=== PATIENT | male | born 1960 | race Caucasian/White ===

== ENCOUNTER 2024-04-30 15:11 | Emergency (ER) | payer BC, SELFPAY ==
[2024-04-30 15:29] VITALS: BP 151/81
[2024-04-30 15:55] LABS: % Basophils 0.5 % (0-2); % Eosinophils 1.3 % (0-6); % Immature Granulocytes 0.4 % (0-0.5); % Lymphocytes 18.3 % (20.5-51.1); % Monocytes 11.4 % (1.7-9.3); % Neutrophils 68.1 % (42.2-75.2); Absolute Eosinophils 0.1 10^3/uL (0-0.7); Absolute Lymphocytes 1.5 10^3/uL (1.2-3.4); Absolute Neutrophils 5.7 10^3/uL (1.4-6.5); Hematocrit 44.1 % (39.0-52.0); Hemoglobin 15.3 g/dL (13.0-18.0); Mean Corp Hgb Conc. 34.7 g/dL (33.0-37.0); Mean Corpuscular Hgb 31.2 pg (27.0-31.0); Mean Corpuscular Volume 89.8 fL (80.0-94.0); Nucleated Red Blood Cells % 0 % (-); Platelet Count 210 10^3/uL (130-400); Red Blood Cell Count 4.91 10^6/uL (4.70-6.10); Red Cell Dist. Width 13.5 % (11.5-14.5); White Blood Cell Count 8.4 10^3/uL (4.8-10.8)
[2024-04-30 16:16] LABS: Troponin I < 0.012 ng/ml
[2024-04-30 16:20] LABS: ALT (SGPT) 46 U/L (0-50); AST (SGOT) 45 U/L (17-59); Albumin 4.6 g/dl (3.5-5.0); Alkaline Phosphatase 78 U/L (38-126); Blood Urea Nitrogen 28 mg/dl (9-20); Calcium 9.5 mg/dl (8.4-10.2); Carbon Dioxide 24 mmol/L (22-30); Chloride 106 mmol/L (98-107); Glucose 94 mg/dl (70-99); Potassium 4.4 mmol/L (3.5-5.1); Sodium 138 mmol/L (135-145); Total Bilirubin 1.6 mg/dl (0.2-1.3); Total Protein 7.2 g/dl (6.3-8.2); eGFR 56.13
[2024-04-30 16:31] VITALS: BMI 34.1
--- NOTE | 2024-04-30 17:06 | ED.GENMED ---
History of Present Illness
General
Chief Complaint: Chest Pain
Time Seen by Provider: 04/30/24 16:33
History of Present Illness
History of Present Illness:
64-year-old male with history of CAD,HTN, hyperlipidemia, and status post CABG x 3 presents to the Emergency Department for evaluation of L sided chest pain x 3 days. Pain is non pleuritic, does not feel comparable to past angina. No fevers, chills
or sweats. Notes a rash on the chest this AM.
Review of Systems
Review of Systems
Allergies reviewed?: Yes
All Other Systems: ROS reviewed and negative except as documented in HPI and ROS
Phy Exam
Physical Exam
Physical Exam:
GEN: Well appearing, NAD, WDWN
HEENT: Oral mucosa moist, no scleral icterus
Cardiac: Regular rateAnd rhythm no murmur
Lung: No respiratory distress, no tachypnea
MSK: No gross deformity or injuries
Skin: Good color, no pallor or jaundice. Vesicular rash to the left chest wall and thoracic back
Neuro: AO x3, moves all extremities freely
Psych: Calm, cooperative
Scores
Heart Score for Chest Pain Patients
STEMI patient?: No
History: Slightly or Non-Suspicious
ECG: Normal
Age: >45 - <65 years
Risk Factors: >/= 3 Risk Factors or History of CAD
Troponin: </= Normal Limit
Heart Score for Chest Pain Patients: 3
Heart Score Risk: 2.5% MACE over next 6 weeks
Course
Orders/Labs/Results
Orders:
Orders
04/30/24 15:27
Electrocardiogram (*1) Urgent
Reason for Study: Chest Pain
EKG- Treatment ONCE
04/30/24 15:43
Complete Blood Count/With Diff Urgent
Comprehensive Metabolic Panel Urgent
Troponin I Urgent
Abnormal Lab Results
04/30/24
15:43
MCH 31.2 H pg
(27.0-31.0)
Absolute Monos (auto) 1.0 H 10^3/uL
(0.1-0.6)
Lymphocytes % 18.3 L %
(20.5-51.1)
Monocytes % 11.4 H %
(1.7-9.3)
BUN 28 H mg/dl
(9-20)
Creatinine 1.4 H mg/dL
(0.7-1.3)
Total Bilirubin 1.6 H mg/dl
(0.2-1.3)
04/30/24 15:43
04/30/24 15:43
Vital Signs
Initial and Last Documented VS:
Initial Vital Signs
Temp Pulse Resp Pulse Ox
97.6 F 39 18 98
04/30/24 15:18 04/30/24 15:18 04/30/24 15:18 04/30/24 15:18
Last Documented Vital Signs
Temp Pulse Resp BP Pulse Ox
97.6 F 75 21 146/80 96
04/30/24 15:18 04/30/24 17:15 04/30/24 17:15 04/30/24 17:31 04/30/24 17:15
MDM/Problems Addressed
MDM/Problems Addressed:
Cardiac workup was reassuring, clinically he has a zoster rash on the left chest that is likely the cause of his symptoms. He is already on pregabalin for chronic neuropathy thus there is no benefit to gabapentin, will prescribe opiate pain
medications and antiviral
Comment
Comment:
Initial EKG independently interpreted by me shows a sinus rhythm with frequent PACs, no ST changes concerning for ischemia
*Critical Care Note
Total Time (30-74mins, 75-104mins- exclusive of procedures): Not Applicable
ED Attending Note
-
Portions of this chart may have been created with voice recognition software.� Occasional wrong word or��sound alike� substitutions may have occurred due to the inherent limitations of voice recognition software.
Discharge Plan
Departure
Patient Disposition: Home (Routine Discharge)
Date of Disposition: 04/30/24
Time of Disposition: 17:07
Patient with high blood pressure during this ER visit?: No
Discharge Problem:
Herpes zoster
Instructions: Shingles
Prescriptions:
New
valacyclovir 1 gram tablet
1,000 mg PO BID Qty: 20 0RF
oxycodone-acetaminophen [Percocet] 5-325 mg tablet
1 tab PO Q6HPRN PRN (Reason: pain) Qty: 15 0RF
Interventions
Interventions:
*Risk Screen - Suicide Last Done: 04/30/24 15:18
*General Assessment Last Done: 04/30/24 15:18
*Neglect/Abuse Screening Last Done: 04/30/24 15:18
ED- Fall Risk Assessment Last Done: 04/30/24 16:32
*Nursing Disposition Last Done: 04/30/24 17:32
ED- Cardiac Assessment Last Done: 04/30/24 16:32
Discharge Date and Time
Discharge Date/Time: 04/30/24 17:32
Print Language: YEMENI
[2024-04-30 17:31] VITALS: BP 146/80
== END 2024-04-30 17:32 | disposition home or self-care (01) ==
LOC: EMR 15:11
PROVIDERS: Emergency Medicine; EMERGENCY PHYSICIAN Emergency Medicine; FAMILY PHYSICIAN Family Medicine
DX: B02.9 Zoster without complications (principal); I25.10 Atherosclerotic heart disease of native coronary artery without angina pectoris; I10 Essential (primary) hypertension; E78.00 Pure hypercholesterolemia, unspecified; G62.9 Polyneuropathy, unspecified; Z95.1 Presence of aortocoronary bypass graft
CPT/HCPCS: 99283; 80053; 84484; 85025; 93005

== ENCOUNTER 2025-05-29 23:15 | Inpatient (IN) | payer BC, SELFPAY ==
[2025-05-29 18:49] VITALS: BP 134/82
[2025-05-29 19:05] LABS: Hematocrit 42.6 % (39.0-52.0); Hemoglobin 14.8 g/dL (13.0-18.0); Mean Corp Hgb Conc. 34.7 g/dL (33.0-37.0); Mean Corpuscular Volume 89.3 fL (80.0-94.0); Nucleated Red Blood Cells % 0 % (-); Platelet Count 192 10^3/uL (130-400); Red Cell Dist. Width 14.3 % (11.5-14.5)
[2025-05-29 19:28] LABS: ALT (SGPT) 35 U/L (0-50); AST (SGOT) 33 U/L (17-59); Albumin 4.3 g/dl (3.5-5.0); Alkaline Phosphatase 89 U/L (38-126); Blood Urea Nitrogen 26 mg/dl (9-20); Calcium 9.1 mg/dl (8.4-10.2); Carbon Dioxide 20 mmol/L (22-30); Chloride 108 mmol/L (98-107); Glucose 158 mg/dl (70-99); Potassium 4.2 mmol/L (3.5-5.1); Sodium 137 mmol/L (135-145); Total Protein 7.2 g/dl (6.3-8.2); eGFR > 60.00
--- NOTE | 2025-05-29 21:32 | ED.GENMED ---
History of Present Illness
General
Chief Complaint: Skin Problem
Source: patient
Time Seen by Provider: 05/29/25 20:57
History of Present Illness
History of Present Illness:
65-year-old male with past medical history of [id number] diabetes, hypertension, hyperlipidemia CAD status post VA presenting to the ER for evaluation of left foot edema and erythema with wounds along the great toe and lateral portion of
the foot. Patient states the great toe seems to be more problematic noting significant drainage, erythema and edema as well as larger ulceration. Patient follows with lane attendant, Dr. Alva. Currently not on any antibiotics. States has a noted
history for peripheral neuropathy secondary to his diabetes and that he does not have much sensation at baseline.
Past History
Past History
ED Past Medical History: CAD, HTN, Hypercholesterolemia and NIDDM
ED Past Surgical History: Cardiac and Orthopedic
Social History
Tobacco: Non-smoker
Alcohol: Occasional
Drug: None
Personal:
Living: with family
Review of Systems
Review of Systems
All Other Systems: ROS reviewed and negative except as documented in HPI and ROS
Phy Exam
Physical Exam
Physical Exam:
GENERAL: Alert , in no apparent distress
EYE: conjunctiva clear
Head: Normocephalic atraumatic
NECK: Supple,
ENT: mmm.
LUNGS: no acute respiratory distress
NEUROLOGICAL: Alert and oriented
SKIN: Warm and dry, left foot: Ulceration along the medial aspect of the great toe probes into the deep tissues, surrounding erythema, edema, minimal pain which patient reports is baseline due to his neuropathy. Erythema extends into the midfoot
and along the plantar surface. The great toe is weeping. There is a dry ulcer along the lateral aspect of the left foot at the distal fifth metatarsal
MUSCULOSKELETAL: well perfused.
PSYCH: Normal and appropriate interaction.
Scores
Heart Failure Risk
Heart Failure Risk Score: Not Applicable
Heart Score for Chest Pain Patients
STEMI patient?: Not applicable
Withdrawal Assessment of Alcohol
Withdrawal Assessment Completed?: Not applicable
Course
Orders/Labs/Results
Orders:
Orders
05/29/25 18:58
C-Reactive Protein Urgent
Comment: ADD ON
Complete Blood Count/With Diff Urgent
Comprehensive Metabolic Panel Urgent
Erythrocyte Sed Rate Urgent
Comment: ADD ON
05/29/25 21:14
Add On- LAB Urgent
Tests Added?: ESR/CRP
Piperacillin/Tazo 3.375 Gram [Zosyn] 3.375 gram in 50 ml IV NOW
05/29/25 21:15
CR Foot - Left Min 3 Views Urgent
Comment:
Reason For Exam: great toe erythema and wound, DM
05/29/25 21:53
Vancomycin [Vancocin] 2,000 mg 0.9% Sodium Chloride 500 ml [Nss] 500 ml IV NOW
05/29/25 22:07
Wound Culture [Wound/Abscess/Other Culture] Urgent
ELEN Source: Toe
Specimen Description:
Date Specimen was Collected: 05/29/25
Time Specimen was Collected: 22:00
Comment: left
05/29/25 22:26
MRSA Screen Routine
ELEN Source: Nose
Specimen Description:
05/29/25 22:56
Admit/Transfer Patient As Directed
Co-Sign Provider:
Level of Care: Inpatient admission
Assign to:: Medical/Surgical
Physician / Group: Keesha Anthony
Diagnosis: diabetic foot wound, cellulitis of left foot
Reason for Hospitalization: diabetic foot wound, cellulitis of left foot
Expected length of stay greater than two midnights?: Yes
ELOS- Estimated Length of Stay in days: 2
I certify the patient meets the requirements for IP care: Yes
05/29/25 22:57
PRN Pain Medication Management As Directed
May give lesser potent ordered pain med per pt: Yes
preference::
Protocol:: Medication orders for pain may be administered in a
manner that supports deferring to patient preference
when the pt is:
- Requesting an ordered lesser potent pain medication.
Least to most potent pain medications are defined
as: acetaminophen < NSAID < tramadol < opioids
(morphine, oxycodone, hydromorphone).
- Requesting a lesser dose of the same medication IF
ORDERED.
- Requesting a less intrusive route of administration
if both routes are prescribed by the provider (PO <
IV).
05/29/25 22:58
Code Status As Directed
Resuscitation Status: Full Code
05/30/25 00:27
Acetaminophen [Tylenol] 650 mg PO Q4HPRN PRN
Duloxetine Delayed Release [Cymbalta Delayed Release] 60 mg PO BID
Ticagrelor [Brilinta] 90 mg PO BID
VANCOMYCIN Pharmacy to Dose [VANCOCIN Pharmacy to Dose] 1 each Pharmacy To Prepare [Call Pharmacy To Prepare] 0 ml IV PER PROTOCOL
05/30/25 00:27
Consult Notification Routine
Specialty to Notify: Infectious Disease
INFECTIOUS DISEASE CONSULT Routine
Consulting Provider: Annabella Wilson
Was physician already notified: No
Reason for consult: diabetic foot wound, cellulitis
PODIATRY CONSULT Routine
Consulting Provider: Darius Burgess
Was physician already notified: Yes
Activity As Directed
Activity Level: As Tolerated
Vital Signs As Directed
Frequency: Per unit guidelines
Weight As Directed
Frequency: Once
Comment: on admission
DX Deep Vein Thrombosis Video Routine
05/30/25 06:00
Basic Metabolic Panel IN AM
Complete Blood Count/No Diff IN AM
Ampicillin/Sulbactam 3 G [Unasyn] 3 gm 0.9% Sodium Chloride 100 ml [Nss] 100 ml IV Q6H
05/30/25 08:00
Aspirin Chewable [Low Strength Aspirin] 81 mg PO DAILY
Dapagliflozin [Farxiga] 10 mg PO DAILY
Ezetimibe [Zetia] 10 mg PO DAILY
METFORMIN HCl [Glucophage] 500 mg PO BID
Metoprolol Xl [Toprol Xl] 100 mg PO DAILY
Metoprolol Xl [Toprol Xl] 50 mg PO DAILY
Pantoprazole [Protonix] 40 mg PO DAILY
Pregabalin [Lyrica] 200 mg PO TID
05/30/25 Dinner
2200 calorie (18 carb) Diabetic
05/30/25 18:00
Enoxaparin Sodium [Lovenox] 40 mg SC QPM
05/30/25 22:00
Atorvastatin [Lipitor] 80 mg PO HS
Abnormal Lab Results
05/29/25
18:58
Absolute Monos (auto) 1.3 H 10^3/uL
(0.1-0.6)
Lymphocytes % 18.8 L %
(20.5-51.1)
Monocytes % 14.5 H %
(1.7-9.3)
Chloride 108 H mmol/L
(98-107)
Carbon Dioxide 20 L mmol/L
(22-30)
BUN 26 H mg/dl
(9-20)
Glucose 158 H mg/dl
(70-99)
C-Reactive Protein 26.40 H mg/L
(0.0-10.00)
05/29/25 18:58
05/29/25 18:58
Vital Signs
Initial and Last Documented VS:
Initial Vital Signs
Temp Pulse Resp BP Pulse Ox
97.9 F 63 18 134/82 98
05/29/25 18:49 05/29/25 18:49 05/29/25 18:49 05/29/25 18:49 05/29/25 18:49
Last Documented Vital Signs
Temp Pulse Resp BP Pulse Ox
97.6 F 56 18 144/89 98
05/30/25 00:33 05/30/25 00:33 05/30/25 00:33 05/30/25 00:33 05/30/25 00:33
MDM/Problems Addressed
Differential Diagnosis Includes:
Diabetic foot ulcer
Osteomyelitis
Cellulitis
Necrotizing fasciitis
Abscess
MDM/Problems Addressed:
65-year-old male presenting to the ER for evaluation of what appears to be a significant diabetic foot infection. Ulcer probes quite deep, unclear if tracks all the way to bone. There is significant erythema, edema and drainage. Patient admits to
not checking his blood sugars very regularly but does report compliance with his oral medications. He is without fevers. Based off presentation I do have some clinical concern for osteomyelitis. X-ray ordered in addition to labs. Wound culture
ordered. Vancomycin and Zosyn ordered for antibiotic coverage. Planning to admit to hospitalist service with podiatry and consult
Chronic conditions affecting care: DM
Acute Exacerbation and/or Progression of Chronic Illness: DM
*Radiology
Radiology exam reviewed: preliminary read by ED provider (No definitive osteomyelitis)
*Pulse Oximetry
SaO2: 98
Oxygen Mode of Delivery: Room air
Patient hypoxic: no
*Critical Care Note
Total Time (30-74mins, 75-104mins- exclusive of procedures): Not Applicable
Patient Management
Discussion with other providers: Hospitalist and Gate Services Supervisor
Escalation/DeEscalation of care consider admission/obs:
I notified the hospitalist team who admits. Patient's lane attendant was also notified in case they need consultation.
ED Attending Note
-
Portions of this chart may have been created with voice recognition software.� Occasional wrong word or��sound alike� substitutions may have occurred due to the inherent limitations of voice recognition software.
Discharge Plan
Departure
Patient Disposition: Admit
Date of Disposition: 05/29/25
Time of Disposition: 21:32
Presentation/result/management discussed w/ accepting MD/DO: Hospitalist
Discharge Problem:
Diabetic foot ulcer, Cellulitis of foot, left
Interventions
Interventions:
*Risk Screen - Suicide Last Done: 05/29/25 18:49
*General Assessment Last Done: 05/29/25 18:49
*Neglect/Abuse Screening Last Done: 05/29/25 18:49
*ED COVID-19 Vaccine History Last Done: 05/30/25 00:34
*Nursing Disposition Last Done: 05/30/25 00:44
ED-Skin Assessment Last Done: 05/29/25 21:59
Discharge Date and Time
Discharge Date/Time: 05/30/25 00:44
[2025-05-29 21:49] VITALS: BMI 35.5
[2025-05-29 21:57] VITALS: BP 160/88
--- NOTE | 2025-05-29 21:59 | HPS.HSE ---
Family Physician
-
Family Physician: NOT KNOW UNKNOWN - PT DOES
Chief Complaint
-
left great toe wound and infection
History of Present Illness
Patient is a 65-year-old male with past medical history significant for hypertension, hyperlipidemia, diabetes, GERD and CAD who presented to [facility] ED for evaluation of left great toe wound and infection. Patient reports area started approximately 6
months ago and follows with spiral machine operator Dr. Burgess. He states that toe was almost healed and yesterday it started to swell and got worse overnight so he came to ED for evalaution after not being able to reach spiral machine operator. Denies fever, chills, cough,
shortness of breath, chest pain, nausea, vomiting, constipation, dairrhea or urniary symptoms.
Medical History
Past Medical History
Past Medical History: Reports Other
Additional Past Medical History:
hypertension
hyperlipidemia
diabetes
GERD
CAD
Past Surgical History: Reports Other
Additional Past Surgical History:
CABG x3 vessel
cardiac cath with stents x2
Social History
Tobacco: Non-smoker
Alcohol: Occasional
Drug: None
Personal:
Living: With Family
Employment: Employed
Family History
Family History: Not pertinent
Allergies / Home Medications
Allergies reflects when Allergies were last updated in [employer].
Home Medications with original date entered in [employer]
Allergy/Medication List:
Allergies
Allergy/AdvReac Type Severity Reaction Status Date / Time
No Known Allergies Allergy Unverified 04/30/24 15:25
Home Medications
aspirin 81 mg tablet 81 mg PO DAILY 05/29/25
atorvastatin 80 mg tablet 80 mg PO HS 05/29/25
duloxetine 60 mg capsule,delayed release 60 mg PO BID 05/29/25
empagliflozin 10 mg tablet (Jardiance) 10 mg PO DAILY 05/29/25
ezetimibe 10 mg tablet 10 mg PO DAILY 05/29/25
metformin 500 mg tablet 500 mg PO BID 05/29/25
metoprolol succinate 100 mg tablet,extended release 24 hr 100 mg PO DAILY 05/29/25
metoprolol succinate 50 mg tablet,extended release 24 hr 50 mg PO DAILY 05/29/25
omeprazole 40 mg capsule,delayed release 40 mg PO DAILY 05/29/25
pregabalin 200 mg capsule 200 mg PO TID 05/29/25
ticagrelor 90 mg tablet 90 mg PO BID 05/29/25
Review of Systems
-
History Source: Patient
Constitutional: Reports No Symptoms
EENT: Reports No Symptoms
Respiratory: Reports No Symptoms
Cardiac: Reports No Symptoms
Abdomen/GI: Reports No Symptoms
: Reports No Symptoms
Musculoskeletal: Reports Other (right great toe diabetic wound infection )
Skin: Reports No Symptoms
Neurological: Reports No Symptoms
Endocrine: Reports No Symptoms
Hematologic/Lymphatic: Reports No Symptoms
Psych: Reports No Symptoms
Physical Exam
Vital Signs
Vital Signs
Temp Pulse Resp BP Pulse Ox
97.9 F 52 17 160/88 100
05/29/25 18:49 05/29/25 21:57 05/29/25 21:57 05/29/25 21:57 05/29/25 21:57
Physical Exam
General: Well Developed, Well Nourished, No Apparent Distress, Comfortable and Conversant
HEENT: NormoCephalic, Moist mucous membranes and Atraumatic
Respiratory: Clear and Non Labored Respirations
Cardiac: S1/S2 and Regular Rhythm; No Murmur, Rub or Gallop
GI: Soft, Non Tender, Non Distended and Normal Bowel Sounds; No Organomegaly
Rectal: Deferred by Provider
Genito-urinary: Deferred by me
Musculoskeletal: No Clubbing and No Cyanosis
Skin: Warm, Rash and Other (right great toe diabetic wound infection )
Neuro: Awake, AO x 3 and Nonfocal/grossly intact
Hematologic/Lymphatic: No Lymphadenopathy
Psych: Calm and Intact Judgment/Insight
Laboratory Results
-
05/29/25 18:58
05/29/25 18:58
Laboratory Results
Total Bilirubin 1.2 mg/dl (0.2-1.3) 05/29/25 18:58
AST 33 U/L (17-59) 05/29/25 18:58
ALT 35 U/L (0-50) 05/29/25 18:58
Alkaline Phosphatase 89 U/L (38-126) 05/29/25 18:58
Data Reviewed
-
Diagnostic Radiology: Report Reviewed by me (Lt foot: o radiographic evidence for ostial myelitis. Thin metallic densities projecting dorsal to the first metatarsal bone, suggesting small opaque foreign bodies, uncertain etiology. Please correlate
clinically. Soft tissue defect involving the superficial plantar soft tissues at the level of t)
Lab Data: Labs Reviewed by me
Impression/Plan
-
IMPRESSION/PLAN:
#diabetic foot wound
Left foot x-ray: No radiographic evidence for ostial myelitis.
Thin metallic densities projecting dorsal to the first metatarsal bone, suggesting small opaque foreign bodies, uncertain etiology. Please correlate clinically.
Soft tissue defect involving the superficial plantar soft tissues at the level of the distal phalanx of the left great toe.
- Admit to med/surg
- MRSA swab
- IV Vanco and unasyn
- Consult ID
- Consult podiatry
- supportive care
#hypertension
- continue metoprolol
#hyperlipidemia
- continue atorvastatin
#diabetes
- continue metformin and Jardiance
#GERD
- continue omeprazole
#CAD
s/p CABG x3 and stents x2
- continue Brilinta
Code status: full code
DVT prophylaxis: lovenox sq
[2025-05-29 22:00] LABS: C-Reactive Protein 26.40 mg/L (0.0-10.00)
[2025-05-29] MEDS: ZOSYN 50 IV (22:04)
--- NOTE | 2025-05-29 22:39 | W.PN.UPDATE ---
Update Note
Progress Note Update
Patient seen in conjunction with WAGNER. I agree with findings on history and physical. I concur with assessment and plan.
Briefly, this is a 65-year-old with past medical history of CAD status post stenting with last 1 year, hypertension, hyperlipidemia, [id number] diabetes complicated by peripheral neuropathy who presents to the emergency department with
acute swelling of the left great toe that started 1 night ago.
Patient reports that he had blisters affecting the left great toe as well as the lateral side of the left foot for several weeks which has been healing. He also reports chronic ulcer of the left great toe for which she has been followed by podiatry
and had routine shavings. Reports history of recurrent tonsillitis but has not been on any antibiotics for the last 1 year. Stated that's had no significant issues up until last night when he started noticing swelling and redness. He denies
having any fevers or chills. He denies any nausea or vomiting. Blood glucose has remained well-controlled. He denies any prior history of foot infections. Denies any trauma.
The emergency department he was afebrile, blood pressure was stable at 160/88 with a pulse of 52 and was satting 97% on room air. ESR was 6, CRP was 26. CBC was fairly unremarkable, electrolytes BUN and creatinine were normal.
X-ray shows no foreign body. I do not see any focal fluid or gas collection. Cannot determine any periosteal changes pending official read.
Patient with diabetic foot infection most likely. He has a chronic ulcer which is does not appear to be related to any ischemic process. He has mild purulent cellulitis without systemic findings. No recent antibiotic or use of hospitalization.
Denies any prior foot infections. No history of gout.
-Admit to [facility]
- Blood cultures sent, he did have a wound swab in the ED
- With negative ESR will hold off on MRI at this time as no other findings consistent with osteo
-podiatry consult
- ID consult
- Given risk factor profile, continue vancomycin pending MRSA swab results
- Continue with IV Unasyn
CAD
- Continue aspirin and Brilinta and statin
- Continue metoprolol
DM 2
- Continue metformin and Jardiance for now
- Sliding scale insulin
DVT prophylaxis� lovenox
Code status - Full code
[2025-05-29] MEDS: VANCOCIN 540 MG IV (22:41)
[2025-05-29 23:00] VITALS: BP 165/102
[2025-05-30] VITALS (7 sets, daily range): BP systolic 139–166; BP diastolic 65–89; BMI 35.3
[2025-05-30 00:38] LABS: Glucose - Point of Care 123 mg/dl (70-99)
[2025-05-30] MEDS: CYMBALTA DELAYED RELEASE 60 MG PO ×3 (01:23→20:27)
[2025-05-30] MEDS: BRILINTA 90 MG PO ×3 (01:23→20:27)
[2025-05-30] MEDS: UNASYN IV ×3 (05:30→17:19)
[2025-05-30 07:24] LABS: Glucose - Point of Care 125 mg/dl (70-99)
[2025-05-30 07:40] LABS: Hematocrit 42.5 % (39.0-52.0); Hemoglobin 14.4 g/dL (13.0-18.0); Mean Corp Hgb Conc. 33.9 g/dL (33.0-37.0); Mean Corpuscular Volume 90.2 fL (80.0-94.0); Platelet Count 170 10^3/uL (130-400); Red Cell Dist. Width 14.3 % (11.5-14.5)
[2025-05-30 08:14] LABS: Blood Urea Nitrogen 21 mg/dl (9-20); Calcium 8.7 mg/dl (8.4-10.2); Carbon Dioxide 25 mmol/L (22-30); Chloride 109 mmol/L (98-107); Estimated Creatinine Clearance 88 ml/min; Glucose 112 mg/dl (70-99); Potassium 3.9 mmol/L (3.5-5.1); Sodium 140 mmol/L (135-145); eGFR > 60.00
--- NOTE | 2025-05-30 08:39 | PHA.VAN.IN ---
Assessment
- Assessment
Renal Function: Unknown baseline
Concomitant Antimicrobials: ampicillin/sulbactam
Plan
- Plan
Initial / Loading Dose: 2000mg - 05/29 22:41
Maintenance Regimen: dosing by level - will give 1500mg x1 at 1800 tonight
Monitoring: random 05/31 06
Based on population PK, patient likely would require 1500mg Q12H
However, patient unlikely to follow population PK with weight > 100kg and CrCl likely overestimated due to weight with elevated SCR
Level tomorrow may be on lower side but will obtain to ensure clearing appropriately before further dosing
Pharmacokinetics Vancomycin I
- -
Patient Age: 65
Patient Sex: Male
Vancomycin Day #: 1
Indication: Diabetic Foot
Requesting Provider: Yarely Dickerson
Pertinent Antimicrobial Allergies:
NKDA
Height / Weight:
Height 6 ft 3 in
Actual Weight 127.941 kg
Pertinent Past Medical History: BMI ~35, DM2
- Vital Signs / Lab Results
Temp Pulse Resp BP Pulse Ox
97.6 F 56 18 144/89 98
05/30/25 00:33 05/30/25 00:33 05/30/25 00:33 05/30/25 00:33 05/30/25 00:33
Lab Results - Hematology
05/29/25 05/30/25
18:58 06:21
WBC 8.9 8.1
Lab Results - Chemistry
05/29/25 05/30/25
18:58 06:21
BUN 26 H 21 H
Creatinine 1.1 1.2
Estimated Creat Clear 88
Albumin 4.3
[2025-05-30 08:54] LABS: Glycohemoglobin (HgbA1c) 7.0 % (4.0-5.6)
--- NOTE | 2025-05-30 09:24 | CON.ID ---
Addendum entered and electronically signed by Annabella Wilson MD 05/30/25 15:23:
I personally performed a history and physical exam of the patient and discussed management with the resident. I reviewed the resident's note and agree with the documented findings and plan of care HPI/CC.
Exam: left great toe edematous, + erythema over met head, plantar wound tunnels and probes to bone.
left dorsalis pedis weak pulse
Assessment:
# Left hallux osteo (wound probes to bone) and cellulitis
# Diabetic left hallux ulcer
# hx Left ?extensor hallux longus tendon repair - which probably correlates with metallic foreign body seen on XRAY
# DM with neuropathy
- Ordered LE arterial duplex with CAS
- Will need MRI
-Recommend podiatry surgery consult. will likely need toe amp.
-Continue Vanco/Unasyn for now.
Follow Vanco level closely adn adjust prn
- Recommend tight glucose control.
Case discussed with Dr. Chacon
Original Note:
Consultation
-
Date/Time Consultation Requested: 05/30/2025 00:27
Date/Time Consultation Performed: 05/30/2025 09:00
Requesting Provider: WAGNER Self
Performing Provider: Dejan Mane MD ; Annabella Wilson MD
Reason for Consultation: Left foot cellulitis
Chief Complaint / Past History
Chief Complaint
Left great toe wound with concerns of cellulitis
History of Present Illness
This is a 65-year-old male with known past medical history of CAD, hypertension, hyperlipidemia, diabetes, GERD presented in the emergency department on 05/29/2025 with complaints of left great toe wound and possible infection. Per the patient he
had a blister under his left foot great toe almost 6 months ago which popped and he had an open wound after that. He was following with the manager product management Dr. Burgess he was not on any antibiotics and it was healing as expected however few days ago he
noticed that he started to develop swelling and pain; denies any new trauma and after he could not reach out to the manager product management, decided to visit the emergency department. Denies any other systemic symptoms including fevers or chills, chest pain,
trouble breathing, GI symptoms or any urinary symptoms.
In the emergency department he was afebrile with blood pressure was slightly elevated other vitals remained stable. ESR was 6, CRP was 26(elevated). CBC with normal white count CMP unremarkable.
Past History
Past Medical History: CAD, GERD, HTN, Hypercholesterolemia and NIDDM
Past Surgical History: Cardiac (CABG x3 vessel, cardiac cath with stents x2)
Allergy History:
No Known Allergies Allergy (Unverified 04/30/24 15:25)
Medications Reviewed: Yes
Current Antibiotics:
Unasyn and vancomycin
Social History
Tobacco: Non-Smoker
Alcohol: Occasional
Drug: None
Personal:
Living: With Family
Family History
Family History: Not Pertinent
Review of Systems
Review of Systems
General: Negative Fever
Cardiovascular: Negative Chest Pain
Respiratory: Negative Cough
Genital / Urological: Negative Dysuria
Musculoskeletal: Joint Pain, Joint Swelling and Other (Left swelling and pain.)
Vital Signs
Temp Pulse Resp BP Pulse Ox
97.4 F 48 18 139/69 100
05/30/25 07:20 05/30/25 07:20 05/30/25 07:20 05/30/25 07:20 05/30/25 07:20
Physical Exam
Physical Exam
Constitutional: No Acute Distress and Well Developed
Cardiovascular: Regular Rate and S1/S2
Pulmonary: Clear and Non Labored
Gastrointestinal: Soft and Non Tender
Musculoskeletal: Joint Swelling (Left great toe)
Skin: Warm
Wound: Other (Open wound under the left great toe)
Neurological: Awake, Alert and Oriented
Psychological: Calm
Lab / Diagnostic Study Results
05/30/25 06:21
05/30/25 06:21
Abs Immat Gran (auto) 0.0 10^3/uL (0-0.05) 05/29/25 18:58
Absolute Neuts (auto) 5.7 10^3/uL (1.4-6.5) 05/29/25 18:58
Absolute Lymphs (auto) 1.7 10^3/uL (1.2-3.4) 05/29/25 18:58
Absolute Monos (auto) 1.3 10^3/uL (0.1-0.6) H 05/29/25 18:58
Absolute Basos (auto) 0.0 10^3/uL (0-0.2) 05/29/25 18:58
Immature Gran % 0.5 % (0-0.5) 05/29/25 18:58
Neutrophils % 63.9 % (42.2-75.2) 05/29/25 18:58
Lymphocytes % 18.8 % (20.5-51.1) L 05/29/25 18:58
Monocytes % 14.5 % (1.7-9.3) H 05/29/25 18:58
Eosinophils % 1.8 % (0-6) 05/29/25 18:58
Basophils % 0.5 % (0-2) 05/29/25 18:58
ESR 6 mm/hour (0-20) 05/29/25 18:58
C-Reactive Protein 26.40 mg/L (0.0-10.00) H 05/29/25 18:58
Microbiology Results
Micro:
05/30/25 00:55 MRSA Screen - Pending
Nose
05/29/25 22:07 Wound Culture - Pending
Toe Gram Stain - Pending
XRAY Foot - Left 05/29/2025:
No radiographic evidence for ostial myelitis.
Thin metallic densities projecting dorsal to the first metatarsal bone, suggesting small opaque foreign bodies, uncertain etiology. Please correlate clinically.
Soft tissue defect involving the superficial plantar soft tissues at the level of the distal phalanx of the left great toe.
Assessment / Plan
# Diabetic left foot infection
# DM
- Trend temperature and WBC
- Podiatry evaluation pending
- Continue IV Unasyn and vancomycin for now while cultures are pending; suspect osteo given the depth of the open wound
- defer mri to podiatry
[2025-05-30] MEDS: ZETIA 10 MG PO (09:27)
[2025-05-30] MEDS: GLUCOPHAGE 500 MG PO ×2 (09:27→20:27)
[2025-05-30] MEDS: PROTONIX 40 MG PO (09:27)
[2025-05-30] MEDS: LOW STRENGTH ASPIRIN 81 MG PO (09:29)
[2025-05-30] MEDS: FARXIGA 10 MG PO (09:30)
[2025-05-30] MEDS: LYRICA 200 MG PO ×3 (09:32→20:30)
--- NOTE | 2025-05-30 09:45 | PTCARENOTE ---
noted patients heart rate 48 (taken by tech), patients heart rate rechecked and found to be 48-56 beats per minute . patient is due for toprol 150 mg this morning. discussed with patient who said torpol was just recently increased from 100mg daily
to 150 mg daily due to increase in PVC's/ Dr Chacon made aware and toprol dose changed and patient placed on operating room technician. monitor showing SB 50's with frequent PVC's. patient denied any symptoms related to decreased heart rate. plan of care
on going.
--- NOTE | 2025-05-30 11:29 | CM ---
analysis manager reviewed patient's chart and met with patient and patient states he lives with his spouse in a 2 story home, patient is independent with adl's and ambulation, no dme, patient drives, home when stable.
PCP: Dr Riley/new PCP Dr. Dailey
Pharmacy: [facility].
[2025-05-30 11:50] LABS: Glucose - Point of Care 136 mg/dl (70-99)
--- NOTE | 2025-05-30 13:56 | W.PN.HOSP.TC ---
Today's Communication/Plan
-
Monitor vital signs see plan
Continue with antibiotics
Podiatry consulted
defer MRI to podiatry
monitor on tele
Assessment / Plan
Assessment / Plan
General: Well Developed, Well Nourished, No Apparent Distress, Comfortable and Conversant
HEENT: NormoCephalic, Moist mucous membranes and Atraumatic
Respiratory: Clear and Non Labored Respirations
Cardiac: S1/S2 and Regular Rhythm; No Murmur, Rub or Gallop
GI: Soft, Non Tender, Non Distended and Normal Bowel Sounds
Skin: Warm, Rash and Other (right great toe diabetic wound infection )
Neuro: Awake, AO x 3 and Nonfocal/grossly intact
Psych: Calm and Intact Judgment/Insight
diabetic foot wound
Left foot x-ray: No radiographic evidence for ostial myelitis.
Thin metallic densities projecting dorsal to the first metatarsal bone, suggesting small opaque foreign bodies, uncertain etiology. Please correlate clinically.
Soft tissue defect involving the superficial plantar soft tissues at the level of the distal phalanx of the left great toe.
- MRSA swab
- cw IV Vanco and unasyn
- Consult ID
Podiatry consulted, consider MRI defer to podiatry
- supportive care
hypertension
- continue metoprolol
hyperlipidemia
- continue atorvastatin
diabetes
- continue metformin and Jardiance
a1c 7
GERD
- continue omeprazole
CAD
s/p CABG x3 and stents x2
- continue Brilinta
On metoprolol, decreased to 75 mg due to bradycardia. Monitor on telemetry
Code status: full code
DVT prophylaxis: lovenox sq
Anticipated Discharge: > 48 hours
Subjective/Interval History
-
Date of Service: May 30, 2025
Denies pain
Objective Data
-
Labs:
Laboratory Results
05/30/25
06:21
WBC 8.1
Hgb 14.4
Hct 42.5
Plt Count 170
Sodium 140
Potassium 3.9
Chloride 109 H
Carbon Dioxide 25
BUN 21 H
Creatinine 1.2
Glucose 112 H
Calcium 8.7
Vital Signs:
Vital Signs
Temp Pulse Resp BP Pulse Ox
97.8 F 51 18 158/80 97
05/30/25 11:11 05/30/25 11:11 05/30/25 11:11 05/30/25 11:11 05/30/25 11:11
I&O
05/29/25 05/30/25 05/31/25
06:59 06:59 06:59
Intake Total 960 / 960
Balance 960 / 960
--- NOTE | 2025-05-30 16:18 | CON.SURG ---
Surgical Consultation
-
Chief Complaint / Past History
Chief Complaint
Left great toe wound with concerns of cellulitis
History of Present Illness
This is a 65-year-old male with known past medical history of CAD, hypertension, hyperlipidemia, diabetes, GERD presented in the emergency department on 05/29/2025 with complaints of left great toe wound and possible infection. Per the patient he
had a blister under his left foot great toe almost 6 months ago which popped and he had an open wound after that. He was following with the wig dresser Dr. Burgess he was not on any antibiotics and it was healing as expected however few days ago he
noticed that he started to develop swelling and pain; denies any new trauma and after he could not reach out to the wig dresser, decided to visit the emergency department. Denies any other systemic symptoms including fevers or chills, chest pain,
trouble breathing, GI symptoms or any urinary symptoms.
In the emergency department he was afebrile with blood pressure was slightly elevated other vitals remained stable. ESR was 6, CRP was 26(elevated). CBC with normal white count CMP unremarkable.
Past History
Past Medical History: CAD, GERD, HTN, Hypercholesterolemia and NIDDM
Past Surgical History: Cardiac (CABG x3 vessel, cardiac cath with stents x2)
Allergy History:
No Known Allergies Allergy (Unverified 04/30/24 15:25)
Medications Reviewed: Yes
Current Antibiotics:
Unasyn and vancomycin
Social History
Tobacco: Non-Smoker
Alcohol: Occasional
Drug: None
Personal:
Living: With Family
Family History
Family History: Not Pertinent
Review of Systems
Review of Systems
General: Negative Fever
Cardiovascular: Negative Chest Pain
Respiratory: Negative Cough
Genital / Urological: Negative Dysuria
Musculoskeletal: Joint Pain, Joint Swelling and Other (Left swelling and pain.)
Vital Signs
Temp Pulse Resp BP Pulse Ox
97.4 F 48 18 139/69 100
05/30/25 07:20 05/30/25 07:20 05/30/25 07:20 05/30/25 07:20 05/30/25 07:20
Physical Exam
Physical Exam
Constitutional: No Acute Distress and Well Developed
Cardiovascular: Regular Rate and S1/S2
Pulmonary: Clear and Non Labored
Gastrointestinal: Soft and Non Tender
Musculoskeletal: Joint Swelling (Left great toe)
Skin: Warm
Wound: Other (Open wound under the left great toe)
Neurological: Awake, Alert and Oriented
Psychological: Calm
LLE Exam:
-DP/PT pulses 2/4, capillary refill < 3 seconds
-Medial hallux wound probes deep to subcutaneous tissue and periosteum
-Scant seropurulent drainage with erythema and edema
-No fluctuance or crepitus
Lab / Diagnostic Study Results
05/30/25 06:21
05/30/25 06:21
Abs Immat Gran (auto) 0.0 10^3/uL (0-0.05) 05/29/25 18:58
Absolute Neuts (auto) 5.7 10^3/uL (1.4-6.5) 05/29/25 18:58
Absolute Lymphs (auto) 1.7 10^3/uL (1.2-3.4) 05/29/25 18:58
Absolute Monos (auto) 1.3 10^3/uL (0.1-0.6) H 05/29/25 18:58
Absolute Basos (auto) 0.0 10^3/uL (0-0.2) 05/29/25 18:58
Immature Gran % 0.5 % (0-0.5) 05/29/25 18:58
Neutrophils % 63.9 % (42.2-75.2) 05/29/25 18:58
Lymphocytes % 18.8 % (20.5-51.1) L 05/29/25 18:58
Monocytes % 14.5 % (1.7-9.3) H 05/29/25 18:58
Eosinophils % 1.8 % (0-6) 05/29/25 18:58
Basophils % 0.5 % (0-2) 05/29/25 18:58
ESR 6 mm/hour (0-20) 05/29/25 18:58
C-Reactive Protein 26.40 mg/L (0.0-10.00) H 05/29/25 18:58
Microbiology Results
Micro:
05/30/25 00:55 MRSA Screen - Pending
Nose
05/29/25 22:07 Wound Culture - Pending
Toe Gram Stain - Pending
XRAY Foot - Left 05/29/2025:
No radiographic evidence for ostial myelitis.
Thin metallic densities projecting dorsal to the first metatarsal bone, suggesting small opaque foreign bodies, uncertain etiology. Please correlate clinically.
Soft tissue defect involving the superficial plantar soft tissues at the level of the distal phalanx of the left great toe.
Assessment / Plan
65 yo M with DM presents with left hallux infection
-Radiographs show no evidence of osteomyelitis
-Wound probes deep with concerns for infection
-Recommend MRI of left foot
-CAS/PVR of LLE
-HbA1c 7.0, ESR 6 CRP 26
-Continue antibiotics per ID recs
-Discussed rigid blood sugar control and risk of amputation, limb loss
-Will continue to follow
[2025-05-30 16:40] LABS: Glucose - Point of Care 173 mg/dl (70-99)
[2025-05-30] MEDS: VANCOCIN 530 MG IV (18:31)
[2025-05-30] MEDS: LOVENOX 40 MG SC (18:32)
[2025-05-30] MEDS: LIPITOR 80 MG PO (20:28)
[2025-05-30 21:37] LABS: Glucose - Point of Care 167 mg/dl (70-99)
[2025-05-31] MEDS: UNASYN IV ×5 (01:08→23:05)
[2025-05-31 03:49] VITALS: BP 141/75
[2025-05-31 07:46] LABS: Hematocrit 43.2 % (39.0-52.0); Hemoglobin 14.5 g/dL (13.0-18.0); Mean Corp Hgb Conc. 33.6 g/dL (33.0-37.0); Mean Corpuscular Volume 90.4 fL (80.0-94.0); Nucleated Red Blood Cells % 0 % (-); Platelet Count 182 10^3/uL (130-400); Red Cell Dist. Width 14.3 % (11.5-14.5)
[2025-05-31 08:16] LABS: Glucose - Point of Care 129 mg/dl (70-99)
[2025-05-31 08:26] LABS: Blood Urea Nitrogen 23 mg/dl (9-20); Calcium 9.3 mg/dl (8.4-10.2); Carbon Dioxide 22 mmol/L (22-30); Chloride 112 mmol/L (98-107); Estimated Creatinine Clearance 88 ml/min; Glucose 135 mg/dl (70-99); Potassium 4.3 mmol/L (3.5-5.1); Sodium 142 mmol/L (135-145); eGFR > 60.00
[2025-05-31 08:43] VITALS: BP 150/78
[2025-05-31] MEDS: FARXIGA 10 MG PO (09:35)
[2025-05-31] MEDS: ZETIA 10 MG PO (09:35)
[2025-05-31] MEDS: PROTONIX 40 MG PO (09:35)
[2025-05-31] MEDS: CYMBALTA DELAYED RELEASE 60 MG PO ×2 (09:35→19:40)
[2025-05-31] MEDS: BRILINTA 90 MG PO ×2 (09:35→19:40)
[2025-05-31] MEDS: LOW STRENGTH ASPIRIN 81 MG PO (09:36)
[2025-05-31] MEDS: TOPROL XL 75 MG PO (09:36)
[2025-05-31] MEDS: GLUCOPHAGE PO (09:37)
[2025-05-31] MEDS: LYRICA 200 MG PO ×3 (09:46→21:00)
[2025-05-31 09:48] LABS: Magnesium 2.1 mg/dl (1.6-2.3)
--- NOTE | 2025-05-31 09:48 | PHA.VAN.FU ---
Vancomycin Assessment / Plan
- Assessment
Renal Function: Stable
WBC's are: WNL
In the past 24 hrs, patient has been: Afebrile
Concomitant Antimicrobials: AMPICILLIN/SULBACTAM
- Assessment - Therapeutic Drug Monitoring
Random Level: 10.1 DRAWN ~12H AFTER PREVIOUS 1500MG DOSE
- Dosing Plan
Adjust Regimen to: VANCO 1500MG X1 NOW, THEN VANCO 1250MG Q12H
- Monitoring Plan
No level(s) ordered at this time: CONSIDER LEVEL PRIOR TO 4TH MAINTENANCE DOSE
- Follow Up
Pharmacy will continue to follow.
Vancomycin Follow UP
- -
Patient Age: 65
Patient Sex: Male
Vancomycin Day #: 2
Indication: Diabetic Foot
Requesting Provider: Yarely Dickerson
Pertinent Antimicrobial Allergies:
NKDA
Height / Weight:
Height 6 ft 3 in
Actual Weight 127.941 kg
Pertinent Past Medical History: BMI ~35, DM2
- Vital Signs / Lab Results
Temp Pulse Resp BP Pulse Ox
98.1 F 53 18 150/78 98
05/31/25 08:43 05/31/25 08:43 05/31/25 08:43 05/31/25 08:43 05/31/25 08:43
Lab Results - Hematology
05/29/25 05/30/25 05/31/25
18:58 06:21 06:00
WBC 8.9 8.1 6.2
Lab Results - Chemistry
05/29/25 05/30/25 05/31/25
18:58 06:21 06:00
BUN 26 H 21 H 23 H
Creatinine 1.1 1.2 1.2
Estimated Creat Clear 88 88
Albumin 4.3
Microbiology Results
05/30/25 00:55 MRSA Screen - Final
Nose No Methicillin Resistant Staphylococcus aureus isolated.
05/29/25 22:07 Gram Stain - Preliminary
Toe
Therapeutic Drug Monitoring
Random Vancomycin 10.1 ug/ml 05/31/25 06:00
[2025-05-31] MEDS: VANCOCIN 530 MG IV (10:29)
[2025-05-31 11:51] LABS: Glucose - Point of Care 168 mg/dl (70-99)
--- NOTE | 2025-05-31 11:58 | W.PN.HOSP.TC ---
Today's Communication/Plan
-
Monitor vital signs see plan
Ultrasound with CAS pending
MRI left foot
Continue with antibiotic
ID and podiatry
Assessment / Plan
Assessment / Plan
General: Well Developed, Well Nourished, No Apparent Distress, Comfortable and Conversant
HEENT: NormoCephalic, Moist mucous membranes and Atraumatic
Respiratory: Clear and Non Labored Respirations
Cardiac: S1/S2 and Regular Rhythm; No Murmur, Rub or Gallop
GI: Soft, Non Tender, Non Distended and Normal Bowel Sounds
Skin: Warm, Rash and Other (left great toe diabetic wound infection )
Neuro: Awake, AO x 3 and Nonfocal/grossly intact
Psych: Calm and Intact Judgment/Insight
diabetic foot wound
Left foot x-ray: No radiographic evidence for ostial myelitis.
Thin metallic densities projecting dorsal to the first metatarsal bone, suggesting small opaque foreign bodies, uncertain etiology. Please correlate clinically.
Soft tissue defect involving the superficial plantar soft tissues at the level of the distal phalanx of the left great toe.
- MRSA swab
- cw IV Vanco and unasyn
ID following
Ultrasound lower extremity with CAS pending, MRI pending
Podiatry following
hypertension
- continue metoprolol
hyperlipidemia
- continue atorvastatin
diabetes
- continue metformin and Jardiance
a1c 7
GERD
- continue omeprazole
CAD
s/p CABG x3 and stents x2
- continue Brilinta
On metoprolol, decreased to 100 mg due to bradycardia. Monitor on telemetry. has PVC's
Code status: full code
DVT prophylaxis: lovenox sq
Anticipated Discharge: > 48 hours
Subjective/Interval History
-
Date of Service: May 31, 2025
denies nausea
Objective Data
-
Labs:
Laboratory Results
05/31/25
06:00
WBC 6.2
Hgb 14.5
Hct 43.2
Plt Count 182
Sodium 142
Potassium 4.3
Chloride 112 H
Carbon Dioxide 22
BUN 23 H
Creatinine 1.2
Glucose 135 H
Calcium 9.3
Vital Signs:
Vital Signs
Temp Pulse Resp BP Pulse Ox
98.1 F 53 18 150/78 98
05/31/25 08:43 05/31/25 08:43 05/31/25 08:43 05/31/25 08:43 05/31/25 08:43
I&O
05/30/25 05/31/25 06/01/25
06:59 06:59 06:59
Intake Total 960 / 960 960 / 960
Balance 960 / 960 960 / 960
[2025-05-31 11:59] VITALS: BP 153/89
[2025-05-31] MEDS: TOPROL XL 25 MG PO (12:04)
[2025-05-31] MEDS: NOVOLOG FLEXPEN-LOW RESISTANCE 1 UNITS SC (14:20)
[2025-05-31 16:11] VITALS: BP 151/72
[2025-05-31 16:55] LABS: Glucose - Point of Care 132 mg/dl (70-99)
[2025-05-31] MEDS: NOVOLOG FLEXPEN-LOW RESISTANCE SC (17:10)
[2025-05-31] MEDS: LOVENOX 40 MG SC (17:14)
[2025-05-31] MEDS: VANCOCIN 275 MG IV (17:52)
[2025-05-31 19:30] VITALS: BP 158/80
[2025-05-31] MEDS: LIPITOR 80 MG PO (19:40)
[2025-05-31 21:08] LABS: Glucose - Point of Care 149 mg/dl (70-99)
[2025-05-31 23:46] VITALS: BP 150/84
[2025-06-01 03:32] VITALS: BP 150/79
[2025-06-01] MEDS: UNASYN IV ×2 (05:46→12:50)
[2025-06-01] MEDS: VANCOCIN 275 MG IV (06:28)
[2025-06-01 07:20] LABS: Hematocrit 42.9 % (39.0-52.0); Hemoglobin 14.4 g/dL (13.0-18.0); Mean Corp Hgb Conc. 33.6 g/dL (33.0-37.0); Mean Corpuscular Volume 89.0 fL (80.0-94.0); Nucleated Red Blood Cells % 0 % (-); Platelet Count 181 10^3/uL (130-400); Red Cell Dist. Width 14.2 % (11.5-14.5)
[2025-06-01 07:45] LABS: Blood Urea Nitrogen 22 mg/dl (9-20); Calcium 8.7 mg/dl (8.4-10.2); Carbon Dioxide 21 mmol/L (22-30); Chloride 112 mmol/L (98-107); Estimated Creatinine Clearance 96 ml/min; Glucose 124 mg/dl (70-99); Potassium 4.1 mmol/L (3.5-5.1); Sodium 140 mmol/L (135-145); eGFR > 60.00
--- NOTE | 2025-06-01 08:13 | PHA.VAN.FU ---
Vancomycin Assessment / Plan
- Assessment
Renal Function: Stable
WBC's are: WNL
In the past 24 hrs, patient has been: Afebrile
Concomitant Antimicrobials: AMIPICILLIN/SULBACTAM
- Assessment - Therapeutic Drug Monitoring
Random Level: 13.1 DRAWN ~12H AFTER PREVIOUS DOSE 1250MG
- Dosing Plan
Continue: VANCO 1250MG Q12H
- Monitoring Plan
No level(s) ordered at this time: CONSIDER LEVEL IN NEXT FEW DAYS
- Follow Up
Pharmacy will continue to follow.
Vancomycin Follow UP
- -
Patient Age: 65
Patient Sex: Male
Vancomycin Day #: 3
Indication: Diabetic Foot
Requesting Provider: Yarely Dickerson
Pertinent Antimicrobial Allergies:
NKDA
Height / Weight:
Height 6 ft 3 in
Actual Weight 127.941 kg
Pertinent Past Medical History: BMI ~35, DM2
- Vital Signs / Lab Results
Temp Pulse Resp BP Pulse Ox
97.8 F 53 20 150/79 98
06/01/25 03:32 06/01/25 03:32 06/01/25 03:32 06/01/25 03:32 06/01/25 03:32
Lab Results - Hematology
05/29/25 05/30/25 05/31/25
18:58 06:21 06:00
WBC 8.9 8.1 6.2
06/01/25
06:53
WBC 7.2
Lab Results - Chemistry
05/29/25 05/30/25 05/31/25
18:58 06:21 06:00
BUN 26 H 21 H 23 H
Creatinine 1.1 1.2 1.2
Estimated Creat Clear 88 88
Albumin 4.3
06/01/25
06:53
BUN 22 H
Creatinine 1.1
Estimated Creat Clear 96
Albumin
Microbiology Results
05/29/25 22:07 Wound Culture - Preliminary
Toe Staphylococcus aureus
Gram negative bacilli
Gram Stain - Preliminary
05/30/25 00:55 MRSA Screen - Final
Nose No Methicillin Resistant Staphylococcus aureus isolated.
Therapeutic Drug Monitoring
Random Vancomycin 13.1 ug/ml 06/01/25 06:13
[2025-06-01 08:22] LABS: Glucose - Point of Care 125 mg/dl (70-99)
[2025-06-01] MEDS: NOVOLOG FLEXPEN-LOW RESISTANCE SC (08:35)
[2025-06-01] MEDS: LYRICA 200 MG PO (08:35)
[2025-06-01] MEDS: CYMBALTA DELAYED RELEASE 60 MG PO (08:35)
[2025-06-01] MEDS: FARXIGA 10 MG PO (08:36)
[2025-06-01] MEDS: PROTONIX 40 MG PO (08:36)
[2025-06-01] MEDS: LOW STRENGTH ASPIRIN 81 MG PO (08:41)
[2025-06-01] MEDS: BRILINTA 90 MG PO (08:41)
[2025-06-01] MEDS: TOPROL XL 100 MG PO (08:41)
[2025-06-01] MEDS: ZETIA 10 MG PO (08:42)
[2025-06-01 11:39] LABS: Glucose - Point of Care 175 mg/dl (70-99)
[2025-06-01 11:52] VITALS: BP 157/81
--- NOTE | 2025-06-01 12:00 | W.PN.ID1 ---
Date of Service
Date of Service: June 01, 2025
Today's Communication
Continue antibiotics
Assessment / Plan
# Diabetic foot infection - left hallux
# DM
- Trend temperature and WBC
- MRI without evidence of osteomyelitis
- No MRSA; will discontinue further vancomycin.
- Continue IV Unasyn and vancomycin for now while cultures are pending; suspect osteo given the depth of the open wound
- Await CAS's
����������������������������������������������������������
Chief Complaint
-: Other (Left hallux infection)
Subjective / Review of Systems
Review of Systems: No Fever and No Chills
Vital Signs / Physical Exam
Vital Signs
Vital Signs
Temp Pulse Resp BP Pulse Ox
97.3 F 55 16 157/81 99
06/01/25 11:52 06/01/25 11:52 06/01/25 11:52 06/01/25 11:52 06/01/25 11:52
Physical Exam
Constitutional: No Acute Distress, Comfortable and Non-toxic
Eyes: Sclera Anicteric
Pulmonary: Non Labored
Gastrointestinal: Non Distended
Wound: Other (Left hallux with plantar-medial wound. No purulence. Probe to 3 mm.)
Neurological: Awake and Alert
Psychological: Calm
Objective Data
Lab Data
Lab Results
06/01/25 06:53
06/01/25 06:53
ESR 6 mm/hour (0-20) 05/29/25 18:58
Estimated Creat Clear 96 ml/min 06/01/25 06:53
Total Bilirubin 1.2 mg/dl (0.2-1.3) 05/29/25 18:58
AST 33 U/L (17-59) 05/29/25 18:58
ALT 35 U/L (0-50) 05/29/25 18:58
Alkaline Phosphatase 89 U/L (38-126) 05/29/25 18:58
C-Reactive Protein 26.40 mg/L (0.0-10.00) H 05/29/25 18:58
Most recent labs reviewed.
Micro Results:
05/29/25 22:07 Wound Culture - Preliminary
Toe S aureus-Methicillin Sensitive
Gram negative bacilli
Gram Stain - Preliminary
05/30/25 00:55 MRSA Screen - Final
Nose No Methicillin Resistant Staphylococcus aureus isolated.
Imaging:
06/01/2025 MRI left lower extremity: Plantar wound of the great toe at the level of the interphalangeal joint with underlying subcutaneous edema extending to the underlying flexor tendon, suggesting cellulitis. No loculated fluid collections.
Probable component of infectious tendinosis/tenosynovitis of the greater flexor tendon at this level. No overt MR evidence for osteomyelitis or septic arthritis.
XRAY Foot - Left 05/29/2025: No radiographic evidence for osteomyelitis. Thin metallic densities projecting dorsal to the first metatarsal bone, suggesting small opaque foreign bodies, uncertain etiology. Please correlate clinically. Soft tissue
defect involving the superficial plantar soft tissues at the level of the distal phalanx of the left great toe.
Care Review
Plan reviewed with: Physician (Hospitalist)
--- NOTE | 2025-06-01 12:10 | W.PN.HOSP.TC ---
Addendum entered and electronically signed by Efren Chacon MD 06/01/25 13:29:
Will give patient prescription for CAS ultrasound and Dr. Wihttaker will follow-up outpatient.
Time of discharge 38 minutes
Addendum entered and electronically signed by Efren Chacon MD 06/01/25 13:14:
Discussed with infectious disease, Dr. Whittaker is okay with discharging patient on Augmentin twice daily for a week and he will follow-up culture outpatient. Patient currently without any leukocytosis, fever. Patient also will follow-up with
podiatry outpatient. Patient is aware that he needs ultrasound lower extremity with CAS
Original Note:
Today's Communication/Plan
-
Monitor vitals
See plan
Continue with antibiotics per infectious disease
Follow culture
cw metoprolol
Assessment / Plan
Assessment / Plan
General: Well Developed, Well Nourished, No Apparent Distress, Comfortable and Conversant
HEENT: NormoCephalic, Moist mucous membranes and Atraumatic
Respiratory: Clear and Non Labored Respirations
Cardiac: S1/S2 and Regular Rhythm; No Murmur, Rub or Gallop
GI: Soft, Non Tender, Non Distended and Normal Bowel Sounds
Skin: Warm, Rash and Other (left great toe diabetic wound infection )
Neuro: Awake, AO x 3 and Nonfocal/grossly intact
Psych: Calm and Intact Judgment/Insight
diabetic foot wound
Left foot x-ray: No radiographic evidence for ostial myelitis.
Thin metallic densities projecting dorsal to the first metatarsal bone, suggesting small opaque foreign bodies, uncertain etiology. Please correlate clinically.
Soft tissue defect involving the superficial plantar soft tissues at the level of the distal phalanx of the left great toe.
- Discontinue vancomycin, continue with Unasyn per infectious disease
Culture with MSSA, gram-negative rods. Final culture pending
ID following
Ultrasound lower extremity with CAS pending, MRI without osteo however concern for tendinosis/tenosynovitis. Discussed with podiatry. No plan for OR at this time unless patient does not improve with antibiotic
Podiatry following
hypertension
- continue metoprolol
hyperlipidemia
- continue atorvastatin
diabetes
- continue metformin and Jardiance
a1c 7
GERD
- continue omeprazole
CAD
s/p CABG x3 and stents x2
- continue Brilinta
On metoprolol, decreased to 100 mg due to bradycardia. Monitor on telemetry. has PVC's
Code status: full code
DVT prophylaxis: lovenox sq
Anticipated Discharge: 24 - 48 hours
Subjective/Interval History
-
Date of Service: June 01, 2025
denies pain
Objective Data
-
Labs:
Laboratory Results
06/01/25
06:53
WBC 7.2
Hgb 14.4
Hct 42.9
Plt Count 181
Sodium 140
Potassium 4.1
Chloride 112 H
Carbon Dioxide 21 L
BUN 22 H
Creatinine 1.1
Glucose 124 H
Calcium 8.7
Vital Signs:
Vital Signs
Temp Pulse Resp BP Pulse Ox
97.3 F 55 16 157/81 99
06/01/25 11:52 06/01/25 11:52 06/01/25 11:52 06/01/25 11:52 06/01/25 11:52
I&O
05/31/25 06/01/25 06/02/25
06:59 06:59 06:59
Intake Total 960 / 960 1450 / 1450
Balance 960 / 960 1450 / 1450
[2025-06-01] MEDS: NOVOLOG FLEXPEN-LOW RESISTANCE 1 UNITS SC (12:49)
--- NOTE | 2025-06-01 13:28 | W.DCSUMMARY ---
Discharge Summary
Discharge Data
Date of Admission: 05/29/25
Date of Discharge: 06/01/25
-
Pending Results: Yes
Hospital Course
65-year-old male with past medical history of hypertension, hyperlipidemia, diabetes, GERD, CAD status post CABG and stent came to the hospital with left foot diabetic wound. Initially x-ray was done which was negative for osteomyelitis. Patient
was then seen by infectious disease and podiatry. Patient later got MRI which was also negative for osteomyelitis however there was concern of tendinosis/tenosynovitis. Per podiatry evaluation, they recommended to follow-up outpatient and no
surgery is planned unless patient symptoms do not improve with antibiotics. From infectious disease standpoint, patient cultures were growing MSSA and gram-negative rods and infectious disease recommended patient to be discharged on p.o. Augmentin
and they will follow-up his culture outpatient. Infectious disease also recommended that they will follow-up patient's arterial ultrasound with CAS. Patient was given prescription for CAS on discharge. Once patient symptoms continue to improve
and he was feeling better, he was discharged home with clear instructions to follow-up with pending culture and imaging with all his physicians outpatient.
Discharge Plan
-
Patient Disposition: Home (Routine Discharge)
Discharge Diagnosis/Procedures: Diabetic foot wound with superimposed cellulitis with possibility of tenosynovitis
Condition: Fair
Diet: As tolerated
Activity: As tolerated
Driving Restrictions: As prior to admission
Bathing Restrictions: None
Others Tests: Arterial ultrasound lower extremity with CAS
Referrals:
Carlton Whittaker, DO [Active, Infectious Diseases] - in one week
Darrell Trevino MD [Active, Podiatry] - in less than 1 week
UNKNOWN - PT DOES,NOT KNOW [Family Provider] - in less than 1 week
Prescriptions:
New
amoxicillin-pot clavulanate 875-125 mg tablet
1 tab PO BID Qty: 14 0RF
Continued
metformin 500 mg tablet
500 mg PO BID
atorvastatin 80 mg tablet
80 mg PO HS
metoprolol succinate 100 mg tablet extended release 24 hr
100 mg PO DAILY
omeprazole 40 mg capsule,delayed release(DR/EC)
40 mg PO DAILY
aspirin 81 mg Tablet
81 mg PO DAILY
ezetimibe 10 mg tablet
10 mg PO DAILY
duloxetine 60 mg capsule,delayed release(DR/EC)
60 mg PO BID
pregabalin 200 mg capsule
200 mg PO TID
ticagrelor 90 mg tablet
90 mg PO BID
Jardiance 10 mg tablet
10 mg PO DAILY
Held
metoprolol succinate 50 mg tablet extended release 24 hr
50 mg PO DAILY
Hold Instructions: Restart if okay by cardiology
Discharge Orders:
Discharge Patient (As Directed); Ordered 06/01/25
Ordered By: Efren Chacon
Discharge Date and Time
Discharge Date/Time: 06/01/25 14:31
Print Language: ICELANDIC
== END 2025-06-01 14:31 | disposition home or self-care (01) | DRG 638 ==
LOC: 4 EAST ACU 23:15
PROVIDERS: Emergency Medicine; Nurse Practitioner Family; ADMITTING PHYSICIAN Internal Medicine; ATTENDING PHYSICIAN Internal Medicine; CONSULT PHYSICIAN Internal Medicine Infectious Disease; CONSULT PHYSICIAN Student in an Organized Health Care Education/Training Program; EMERGENCY PHYSICIAN Student in an Organized Health Care Education/Training Program
DX: E11.621 Type 2 diabetes mellitus with foot ulcer (principal); L03.116 Cellulitis of left lower limb; L97.429 Non-pressure chronic ulcer of left heel and midfoot with unspecified severity; E11.42 Type 2 diabetes mellitus with diabetic polyneuropathy; M65.872 Other synovitis and tenosynovitis, left ankle and foot; K21.9 Gastro-esophageal reflux disease without esophagitis; E78.00 Pure hypercholesterolemia, unspecified; I10 Essential (primary) hypertension; I25.10 Atherosclerotic heart disease of native coronary artery without angina pectoris; Z95.1 Presence of aortocoronary bypass graft; I25.2 Old myocardial infarction; Z79.84 Long term (current) use of oral hypoglycemic drugs; Z79.82 Long term (current) use of aspirin; Z95.5 Presence of coronary angioplasty implant and graft; Z79.02 Long term (current) use of antithrombotics/antiplatelets
CPT/HCPCS: 73630; 73720; 80048; 80053; 80202; 82962; 83036; 83735; 85025; 85027; 85652; 86140; 87070; 87077; 87147; 87184; 87186; 87205; 96365; 96366; 96367; 99284; A9575

== ENCOUNTER → 2025-06-17 09:43 | Outpatient (REF) | payer BC, SELFPAY | LOC: RAD 09:43 | PROVIDERS: ATTENDING PHYSICIAN Internal Medicine | DX: E78.2 Mixed hyperlipidemia (principal); I10 Essential (primary) hypertension; E11.621 Type 2 diabetes mellitus with foot ulcer; E11.42 Type 2 diabetes mellitus with diabetic polyneuropathy | CPT/HCPCS: 93922; 93925 ==

== ENCOUNTER → 2025-08-04 21:19 | Outpatient (REF) | payer BC, SELFPAY | LOC: PAVMRI 21:19 | PROVIDERS: ATTENDING PHYSICIAN Podiatrist Foot Surgery; FAMILY PHYSICIAN Internal Medicine | DX: M86.172 Other acute osteomyelitis, left ankle and foot (principal) | CPT/HCPCS: 73721 ==

== ENCOUNTER → 2025-08-22 17:23 | Outpatient (REF) | payer BC, SELFPAY | LOC: CLAB 17:23 | PROVIDERS: ATTENDING PHYSICIAN Podiatrist Foot Surgery | DX: M86.172 Other acute osteomyelitis, left ankle and foot (principal) | CPT/HCPCS: 87070; 87075; 87205 ==